=== PATIENT | female | born 1980 | race Caucasian/White ===

== ENCOUNTER 2021-07-14 08:39 | Outpatient (CLI) | payer BC, SELFPAY ==
--- NOTE | ~2021-07-14 | MM_ITS ---
EXAMINATION: MM screening william BI w fiordal[facility] HISTORY: Screening mammogram TECHNIQUE: Craniocaudal and mediolateral oblique 3-D tomosynthesis images were obtained and synthetic 2-D images were generated. CAD analysis was submitted and interpreted. COMPARISON: 07/17/2011 bilateral diagnostic mammogram and right breast ultrasound examination BREAST PARENCHYMAL COMPOSITION: There are scattered areas of fibroglandular density. FINDINGS: There is no evidence of suspicious mass, calcification, or architectural distortion to sugg est malignancy in either breast. There has been no suspicious interval change. IMPRESSION: 1. No mammographic evidence of malignancy. 2. Recommend routine screening mammography in one year. BI-RADS Category 1: Negative Reviewed, dictated and finalized at location A. [employer] AUD[employer]OR
== END 2021-07-14 08:40 | disposition home or self-care (01) ==
LOC: ANHIMG 08:41
PROVIDERS: PCP Family Medicine; Visit Provider Obstetrics & Gynecology
DX: Z12.31 Encounter for screening mammogram for malignant neoplasm of breast (principal)
CPT/HCPCS: 77063; 77067